=== PATIENT | female | born 1985 | race Caucasian/White ===

== ENCOUNTER 2024-12-04 03:36 | Emergency (ER) | payer MEDICAID ==
[~2024-12-04] VITALS: Ht 149.9 cm; Wt 66.3 kg
[2024-12-04 03:38] VITALS: BP 123/83; TEMP 36.8; O2SAT 98
[2024-12-04 03:39] VITALS: PULSE 95; RESP 18; O2SAT 100
[2024-12-04] MEDS ORDERED: CEFD300C3 MT (04:00)
[2024-12-04 04:10] VITALS: TEMP 98.3
[2024-12-04] MEDS: ACETAMINOPHEN 500MG TABLET PO ONE (04:10)
== END 2024-12-04 04:45 | disposition home or self-care (01) ==
LOC: ER 03:36
DX: O26.892 Other specified pregnancy related conditions, second trimester (principal); K08.89 Other specified disorders of teeth and supporting structures; H92.01 Otalgia, right ear; Z3A.16 16 weeks gestation of pregnancy
CPT/HCPCS: 99283